=== PATIENT | female | born 1945 | race American Indian/Alaskan Native ===

== ENCOUNTER 2021-03-28 09:40 | Inpatient (IN) | payer MEDICARE ==
[2021-03-28] MEDS ORDERED: ALBUTEROL 2.5 MG/3 ML NEBU IH ONE (09:54)
[2021-03-28] MEDS ORDERED: IPRATROPIUM 0.02% NEBU 2.5 ML IH ONE (09:54)
[2021-03-28 10:26] LABS: Hematocrit 34.5 % (30.3-42.9); Hemoglobin 11.2 gm/dl (10.1-14.3); Mean Corpuscular HGB Conc 33 % (30-34); Mean Corpuscular Volume 82 fl (79-97); Platelet Count 189 K/mm3 (140-440); Red Cell Distribution Width 14.4 % (13.2-15.2)
[2021-03-28 10:36] LABS: INR 0.86 (0.87-1.13)
[2021-03-28 10:37] LABS: Partial Thromboplastin Time 30.8 Sec. (24.2-36.6)
--- NOTE | 2021-03-28 10:50 | XRay Report ---
CHEST 1 VIEW INDICATION / CLINICAL INFORMATION: Dyspnea. COMPARISON: 04/30/2015. FINDINGS: SUPPORT DEVICES: None. HEART / MEDIASTINUM: No significant abnormality. LUNGS / PLEURA: Prominence of the pulmonary vasculature may represent some degree of pulmonary vascul ar congestion. No overt edema. No pneumothorax. ADDITIONAL FINDINGS: No significant additional findings. IMPRESSION: 1. Prominence of the pulmonary vasculature may represent pulmonary vascular congestion. No overt shannan a. No focal consolidation. Signer Name: Jono Dickinson MD Signed: 03/28/2021 10:45 AM Workstation Name: [id number]
[2021-03-28 11:08] LABS: ABG Base Excess 0.7 mmol/L (-2.0-3.0); ABG HCO3 26.1 mmol/L (20.0-26.0); ABG Methemoglobin 0.4 % (0.0-1.5); ABG Oxygen Saturation 96.8 % (95.0-99.0); ABG PH 7.382 pH Units (7.350-7.450); ABG PO2 86.2 mm Hg (80.0-90.0)
[2021-03-28 11:19] LABS: Alanine Aminotransferase 8 units/L (7-56); Albumin 3.9 g/dL (3.9-5); BUN/Creatinine Ratio 9; Blood Urea Nitrogen 10 mg/dL (7-17); Calcium 9.4 mg/dL (8.4-10.2); Hemolysis Index 3
[2021-03-28 11:24] LABS: Bilirubin,Urine NEG (Negative); Blood,Urine NEG (Negative); Color,Urine Straw (Yellow); Protein,Urine <15 mg/dL mg/dL (Negative); Urobilinogen,Urine < 2.0 mg/dL (<2.0)
[2021-03-28 13:27] LABS: Giant Platelets Few; Platelet Estimate Consistent w Auto; RBC Morphology Normal; Total Cells Counted 100
--- NOTE | 2021-03-28 14:14 | Emergency Department Report ---
ED General Adult HPI - General Chief complaint: Dyspnea/Respdistress Stated complaint: CRISTIAN/CHF/COPD Time Seen by Provider: 03/28/21 09:54 Source: patient, EMS Mode of arrival: Stretcher Limitations: No Limitations - History of Present Illness Initial comments: Patient presents to the emergency department via EMS on a CPAP for respiratory distress. Patient has a history of COPD and CHF. Per EMS the patient's O2 sats were in the low 80s upon arrival. Patient is using all sensory muscles and tripoding on the CPAP on arrival. Patient is in significant discomfort respiratory ponce. Patient is only able to speak in 2-3 word sentences. Patient denies chest pain but does endorse having some chest tightness. She denies abdominal pain or headache. Patient received 2 mg of magnesium, 125 mg of Solu- Medrol, and 10 mg of albuterol prior to arrival by EMS -: Sudden Severity scale (0 -10): 0 Consistency: constant Improves with: none Worsens with: none Associated Symptoms: denies other symptoms - Related Data Home Medications Medication Instructions Recorded Confirmed Last Taken Furosemide [Lasix TAB] 40 mg PO QDAY 05/31/15 06/28/15 05/30/15 amLODIPine 5 mg PO DAILY 05/31/15 06/28/15 05/30/15 cloNIDine [Catapres] 0.1 mg PO BID 05/31/15 06/28/15 05/30/15 lisinopriL [Zestril TAB] 40 mg PO QDAY 05/31/15 06/28/15 05/30/15 Fluticasone [Flonase] 1 spray NS QDAY 06/28/15 06/28/15 Unknown Hydralazine HCl [Apresoline TAB] 25 mg PO DAILY 06/28/15 06/28/15 Unknown Montelukast [Singulair] 10 mg PO QPM 06/28/15 06/28/15 Unknown traMADoL [Ultram 50 MG tab] 50 mg PO Q8HR PRN 06/28/15 06/28/15 Unknown Previous Rx's Medication Instructions Recorded Last Taken Type Albuterol Mdi (or & Nicu Only) 2 puff IH QID PRN #30 inha 06/02/15 Unknown Rx [ProAir HFA Inhaler] Budesoni/Formotero 160-4.5(Nf) 2 puff IH BID #30 inha 06/02/15 Unknown Rx [Symbicort 160-4.5 (Nf)] Metformin HCl [Glucophage] 1,000 mg PO BID #60 tablet 06/02/15 Unknown Rx carvediloL [Coreg] 6.25 mg PO BID #60 tablet 06/02/15 Unknown Rx levoFLOXacin [Levaquin TAB] 500 mg PO QDAY #7 tablet 06/02/15 Unknown Rx predniSONE 10 mg PO QDAY #60 tablet 06/02/15 Unknown Rx oxyCODONE /ACETAMINOPHEN [Percocet 1 tab PO Q6HR PRN #30 tablet 07/01/15 Unknown Rx 5/325] Allergies Allergy/AdvReac Type Severity Reaction Status Date / Time NSAIDS (Non-Steroidal Allergy Unknown Verified 06/28/15 13:21 Anti-Inflamma ED Review of Systems ROS: Stated complaint: CRISTIAN/CHF/COPD Other details as noted in HPI Comment: Unobtainable due to pts medical conditions ED Past Medical Hx - Past Medical History Hx Hypertension: Yes Hx Heart Attack/AMI: No Hx Congestive Heart Failure: Yes Hx Diabetes: Yes Hx Deep Vein Thrombosis: No Hx Pulmonary Embolism: No Hx Liver Disease: No Hx Arthritis: Yes Hx Asthma: Yes Hx COPD: Yes Hx Tuberculosis: No Hx HIV: No Additional medical history: Chronic sinusitis - Surgical History Hx Coronary Stent: No Hx Open Heart Surgery: No Hx Pacemaker: No Hx Internal Defibrillator: No Hx Cholecystectomy: No Hx Appendectomy: No Hx Breast Surgery: No Additional Surgical History: Sinus surgeries, c-sections, left wrist surgery - Social History Smoking Status: Unknown if ever smoked - Medications Home Medications: Home Medications Medication Instructions Recorded Confirmed Last Taken Type Furosemide [Lasix TAB] 40 mg PO QDAY 05/31/15 06/28/15 05/30/15 History amLODIPine 5 mg PO DAILY 05/31/15 06/28/15 05/30/15 History cloNIDine [Catapres] 0.1 mg PO BID 05/31/15 06/28/15 05/30/15 History lisinopriL [Zestril TAB] 40 mg PO QDAY 05/31/15 06/28/15 05/30/15 History Albuterol Mdi (or & Nicu Only) 2 puff IH QID PRN #30 inha 06/02/15 06/28/15 Unknown Rx [ProAir HFA Inhaler] Budesoni/Formotero 160-4.5(Nf) 2 puff IH BID #30 inha 06/02/15 06/28/15 Unknown Rx [Symbicort 160-4.5 (Nf)] Metformin HCl [Glucophage] 1,000 mg PO BID #60 tablet 06/02/15 06/28/15 Unknown Rx carvediloL [Coreg] 6.25 mg PO BID #60 tablet 06/02/15 06/28/15 Unknown Rx levoFLOXacin [Levaquin TAB] 500 mg PO QDAY #7 tablet 06/02/15 06/28/15 Unknown Rx predniSONE 10 mg PO QDAY #60 tablet 06/02/15 06/28/15 Unknown Rx Fluticasone [Flonase] 1 spray NS QDAY 06/28/15 06/28/15 Unknown History Hydralazine HCl [Apresoline TAB] 25 mg PO DAILY 06/28/15 06/28/15 Unknown History Montelukast [Singulair] 10 mg PO QPM 06/28/15 06/28/15 Unknown History traMADoL [Ultram 50 MG tab] 50 mg PO Q8HR PRN 06/28/15 06/28/15 Unknown History oxyCODONE /ACETAMINOPHEN [Percocet 1 tab PO Q6HR PRN #30 tablet 07/01/15 Unknown Rx 5/325] ED Physical Exam - General Limitations: No Limitations General appearance: alert, in no apparent distress, in distress (Patient seen severe respiratory distress on CPAP tripoding on exam using all accessory muscle s.) - Head Head exam: Present: atraumatic, normocephalic - Eye Eye exam: Present: normal appearance - ENT ENT exam: Present: mucous membranes dry - Neck Neck exam: Present: normal inspection - Respiratory Respiratory exam: Present: respiratory distress, other (No movement of air on exam) - Cardiovascular Cardiovascular Exam: Present: normal rhythm, tachycardia. Absent: systolic murmur, diastolic murmur, rubs, gallop - GI/Abdominal GI/Abdominal exam: Present: soft, normal bowel sounds. Absent: distended, tenderness - Extremities Exam Extremities exam: Present: normal inspection - Back Exam Back exam: Present: normal inspection - Neurological Exam Neurological exam: Present: alert, oriented X3 - Psychiatric Psychiatric exam: Present: normal affect, normal mood - Skin Skin exam: Present: warm, dry, intact, normal color. Absent: rash ED Course Vital Signs 03/28/21 03/28/21 03/28/21 09:47 10:00 10:04 Temperature 97.5 F L Pulse Rate 93 H 90 88 Pulse Rate [ Bilateral] Respiratory 18 15 4 L Rate Respiratory Rate [Bilateral ] Blood Pressure 166/101 [Right] O2 Sat by Pulse 100 100 100 Oximetry 03/28/21 11:44 Temperature Pulse Rate Pulse Rate [ 78 Bilateral] Respiratory Rate Respiratory 16 Rate [Bilateral ] Blood Pressure [Right] O2 Sat by Pulse Oximetry ED Medical Decision Making - Lab Data Result diagrams: 03/28/21 10:00 03/28/21 10:00 Lab Results 03/28/21 03/28/21 03/28/21 Range/Units 10:00 10:00 10:00 WBC 4.6 (4.5-11.0) K/mm3 RBC 4.20 (3.65-5.03) M/mm3 Hgb 11.2 (10.1-14.3) gm/dl Hct 34.5 (30.3-42.9) % MCV 82 (79-97) fl MCH 27 L (28-32) pg MCHC 33 (30-34) % RDW 14.4 (13.2-15.2) % Plt Count 189 (140-440) K/mm3 Eos % (Auto) Systems Navigator Add Manual Diff Complete Total Counted 100 Seg Neutrophils % Systems Navigator Seg Neuts % (Manual) 51.0 (40.0-70.0) % Lymphocytes % (Manual) 25.0 (13.4-35.0) % Monocytes % (Manual) 9.0 H (0.0-7.3) % Eosinophils % (Manual) 15.0 H (0.0-4.3) % Nucleated RBC % Not Reportable Seg Neutrophils # Man 2.3 (1.8-7.7) K/mm3 Band Neutrophils # 0.0 K/mm3 Lymphocytes # (Manual) 1.2 (1.2-5.4) K/mm3 Abs React Lymphs (Man) 0.0 K/mm3 Monocytes # (Manual) 0.4 (0.0-0.8) K/mm3 Eosinophils # (Manual) 0.7 H (0.0-0.4) K/mm3 Basophils # (Manual) 0.0 (0.0-0.1) K/mm3 Metamyelocytes # 0.0 K/mm3 Myelocytes # 0.0 K/mm3 Promyelocytes # 0.0 K/mm3 Blast Cells # 0.0 K/mm3 WBC Morphology Not Reportable Hypersegmented Neuts Not Reportable Hyposegmented Neuts Not Reportable Hypogranular Neuts Not Reportable Smudge Cells Not Reportable Toxic Granulation Not Reportable Toxic Vacuolation Not Reportable Dohle Bodies Not Reportable Pelger-Huet Anomaly Not Reportable Ananda Rods Not Reportable Platelet Estimate Consistent w auto Clumped Platelets Not Reportable Plt Clumps, EDTA Not Reportable Large Platelets Not Reportable Giant Platelets Few Platelet Satelliting Not Reportable Plt Morphology Comment Not Reportable RBC Morphology Normal Dimorphic RBCs Not Reportable Polychromasia Not Reportable Hypochromasia Not Reportable Poikilocytosis Not Reportable Anisocytosis Not Reportable Microcytosis Not Reportable Macrocytosis Not Reportable Spherocytes Not Reportable Pappenheimer Bodies Not Reportable Sickle Cells Not Reportable Target Cells Not Reportable Tear Drop Cells Not Reportable Ovalocytes Not Reportable Helmet Cells Not Reportable [place] Bodies Not Reportable Glidden Rings Not Reportable Yusuf Cells Not Reportable Bite Cells Not Reportable Crenated Cell Not Reportable Elliptocytes Not Reportable Acanthocytes (Spur) Not Reportable Rouleaux Not Reportable Hemoglobin C Crystals Not Reportable Schistocytes Not Reportable Malaria parasites Not Reportable Nathan Bodies Not Reportable Hem Pathologist Commnt No PT 12.2 (12.2-14.9) Sec. INR 0.86 L (0.87-1.13) APTT 30.8 (24.2-36.6) Sec. ABG pH (7.350-7.450) pH Units ABG pCO2 mm Hg ABG pO2 (80.0-90.0) mm Hg ABG HCO3 (20.0-26.0) mmol/L ABG O2 Saturation (95.0-99.0) % ABG O2 Content (0.0-44) ABG Base Excess (-2.0-3.0) mmol/L ABG Hemoglobin (12.0-16.0) gm/dl ABG Carboxyhemoglobin (0.0-5.0) % ABG Methemoglobin (0.0-1.5) % Oxyhemoglobin (95.0-99.0) % FiO2 % Sodium 139 (137-145) mmol/L Potassium 4.0 (3.6-5.0) mmol/L Chloride 102.6 (98-107) mmol/L Carbon Dioxide 23 (22-30) mmol/L Anion Gap 17 mmol/L BUN 10 (7-17) mg/dL Creatinine 1.1 (0.6-1.2) mg/dL Estimated GFR 59 ml/min BUN/Creatinine Ratio 9 % Glucose 104 H (65-100) mg/dL Lactic Acid (0.7-2.0) mmol/L Calcium 9.4 (8.4-10.2) mg/dL Magnesium 3.10 H (1.7-2.3) mg/dL Total Bilirubin 0.50 (0.1-1.2) mg/dL AST 15 (5-40) units/L ALT 8 (7-56) units/L Alkaline Phosphatase 99 (35-129) units/L Troponin T < 0.010 (0.00-0.029) ng/mL NT-Pro-B Natriuret Pep (0-900) pg/mL Total Protein 6.5 (6.3-8.2) g/dL Albumin 3.9 (3.9-5) g/dL Albumin/Globulin Ratio 1.5 % Urine Color (Yellow) Urine Turbidity (Clear) Urine pH (5.0-7.0) Ur Specific [place] (1.003-1.030) Urine Protein (Negative) mg/dL Urine Glucose (UA) (Negative) mg/dL Urine Ketones (Negative) mg/dL Urine Blood (Negative) Urine Nitrite (Negative) Urine Bilirubin (Negative) Urine Urobilinogen (<2.0) mg/dL Ur Leukocyte Esterase (Negative) Urine WBC (Auto) (0.0-6.0) /HPF Urine RBC (Auto) (0.0-6.0) /HPF U Epithel Cells (Auto) (0-13.0) /HPF 03/28/21 03/28/21 03/28/21 Range/Units 10:00 10:00 10:35 WBC (4.5-11.0) K/mm3 RBC (3.65-5.03) M/mm3 Hgb (10.1-14.3) gm/dl Hct (30.3-42.9) % MCV (79-97) fl MCH (28-32) pg MCHC (30-34) % RDW (13.2-15.2) % Plt Count (140-440) K/mm3 Eos % (Auto) Add Manual Diff Total Counted Seg Neutrophils % Seg Neuts % (Manual) (40.0-70.0) % Lymphocytes % (Manual) (13.4-35.0) % Monocytes % (Manual) (0.0-7.3) % Eosinophils % (Manual) (0.0-4.3) % Nucleated RBC % Seg Neutrophils # Man (1.8-7.7) K/mm3 Band Neutrophils # K/mm3 Lymphocytes # (Manual) (1.2-5.4) K/mm3 Abs React Lymphs (Man) K/mm3 Monocytes # (Manual) (0.0-0.8) K/mm3 Eosinophils # (Manual) (0.0-0.4) K/mm3 Basophils # (Manual) (0.0-0.1) K/mm3 Metamyelocytes # K/mm3 Myelocytes # K/mm3 Promyelocytes # K/mm3 Blast Cells # K/mm3 WBC Morphology Hypersegmented Neuts Hyposegmented Neuts Hypogranular Neuts Smudge Cells Toxic Granulation Toxic Vacuolation Dohle Bodies Pelger-Huet Anomaly Ananda Rods Platelet Estimate Clumped Platelets Plt Clumps, EDTA Large Platelets Giant Platelets Platelet Satelliting Plt Morphology Comment RBC Morphology Dimorphic RBCs Polychromasia Hypochromasia Poikilocytosis Anisocytosis Microcytosis Macrocytosis Spherocytes Pappenheimer Bodies Sickle Cells Target Cells Tear Drop Cells Ovalocytes Helmet Cells [place] Bodies Glidden Rings [place] Cells Bite Cells Crenated Cell Elliptocytes Acanthocytes (Spur) Rouleaux Hemoglobin C Crystals Schistocytes Malaria parasites Nathan Bodies Hem Pathologist Commnt PT (12.2-14.9) Sec. INR (0.87-1.13) APTT (24.2-36.6) Sec. ABG pH (7.350-7.450) pH Units ABG pCO2 mm Hg ABG pO2 (80.0-90.0) mm Hg ABG HCO3 (20.0-26.0) mmol/L ABG O2 Saturation (95.0-99.0) % ABG O2 Content (0.0-44) ABG Base Excess (-2.0-3.0) mmol/L ABG Hemoglobin (12.0-16.0) gm/dl ABG Carboxyhemoglobin (0.0-5.0) % ABG Methemoglobin (0.0-1.5) % Oxyhemoglobin (95.0-99.0) % FiO2 % Sodium (137-145) mmol/L Potassium (3.6-5.0) mmol/L Chloride (98-107) mmol/L Carbon Dioxide (22-30) mmol/L Anion Gap mmol/L BUN (7-17) mg/dL Creatinine (0.6-1.2) mg/dL Estimated GFR ml/min BUN/Creatinine Ratio % Glucose (65-100) mg/dL Lactic Acid 0.90 (0.7-2.0) mmol/L Calcium (8.4-10.2) mg/dL Magnesium (1.7-2.3) mg/dL Total Bilirubin (0.1-1.2) mg/dL AST (5-40) units/L ALT (7-56) units/L Alkaline Phosphatase (35-129) units/L Troponin T (0.00-0.029) ng/mL NT-Pro-B Natriuret Pep 309.2 (0-900) pg/mL Total Protein (6.3-8.2) g/dL Albumin (3.9-5) g/dL Albumin/Globulin Ratio % Urine Color Straw (Yellow) Urine Turbidity Clear (Clear) Urine pH 6.0 (5.0-7.0) Ur Specific [place] 1.006 (1.003-1.030) Urine Protein <15 mg/dl (Negative) mg/dL Urine Glucose (UA) Neg (Negative) mg/dL Urine Ketones Neg (Negative) mg/dL Urine Blood Neg (Negative) Urine Nitrite Neg (Negative) Urine Bilirubin Neg (Negative) Urine Urobilinogen < 2.0 (<2.0) mg/dL Ur Leukocyte Esterase Neg (Negative) Urine WBC (Auto) 1.0 (0.0-6.0) /HPF Urine RBC (Auto) 2.0 (0.0-6.0) /HPF U Epithel Cells (Auto) < 1.0 (0-13.0) /HPF 03/28/21 Range/Units 11:00 WBC (4.5-11.0) K/mm3 RBC (3.65-5.03) M/mm3 Hgb (10.1-14.3) gm/dl Hct (30.3-42.9) % MCV (79-97) fl MCH (28-32) pg MCHC (30-34) % RDW (13.2-15.2) % Plt Count (140-440) K/mm3 Eos % (Auto) Add Manual Diff Total Counted Seg Neutrophils % Seg Neuts % (Manual) (40.0-70.0) % Lymphocytes % (Manual) (13.4-35.0) % Monocytes % (Manual) (0.0-7.3) % Eosinophils % (Manual) (0.0-4.3) % Nucleated RBC % Seg Neutrophils # Man (1.8-7.7) K/mm3 Band Neutrophils # K/mm3 Lymphocytes # (Manual) (1.2-5.4) K/mm3 Abs React Lymphs (Man) K/mm3 Monocytes # (Manual) (0.0-0.8) K/mm3 Eosinophils # (Manual) (0.0-0.4) K/mm3 Basophils # (Manual) (0.0-0.1) K/mm3 Metamyelocytes # K/mm3 Myelocytes # K/mm3 Promyelocytes # K/mm3 Blast Cells # K/mm3 WBC Morphology Hypersegmented Neuts Hyposegmented Neuts Hypogranular Neuts Smudge Cells Toxic Granulation Toxic Vacuolation Dohle Bodies Pelger-Huet Anomaly Ananda Rods Platelet Estimate Clumped Platelets Plt Clumps, EDTA Large Platelets Giant Platelets Platelet Satelliting Plt Morphology Comment RBC Morphology Dimorphic RBCs Polychromasia Hypochromasia Poikilocytosis Anisocytosis Microcytosis Macrocytosis Spherocytes Pappenheimer Bodies Sickle Cells Target Cells Tear Drop Cells Ovalocytes Helmet Cells [place] Bodies Glidden Rings Yusuf Cells Bite Cells Crenated Cell Elliptocytes Acanthocytes (Spur) Rouleaux Hemoglobin C Crystals Schistocytes Malaria parasites Nathan Bodies Hem Pathologist Commnt PT (12.2-14.9) Sec. INR (0.87-1.13) APTT (24.2-36.6) Sec. ABG pH 7.382 (7.350-7.450) pH Units ABG pCO2 45.0 mm Hg ABG pO2 86.2 (80.0-90.0) mm Hg ABG HCO3 26.1 H (20.0-26.0) mmol/L ABG O2 Saturation 96.8 (95.0-99.0) % ABG O2 Content 15.3 (0.0-44) ABG Base Excess 0.7 (-2.0-3.0) mmol/L ABG Hemoglobin 11.4 L (12.0-16.0) gm/dl ABG Carboxyhemoglobin 1.4 (0.0-5.0) % ABG Methemoglobin 0.4 (0.0-1.5) % Oxyhemoglobin 95.0 (95.0-99.0) % FiO2 35 % Sodium (137-145) mmol/L Potassium (3.6-5.0) mmol/L Chloride (98-107) mmol/L Carbon Dioxide (22-30) mmol/L Anion Gap mmol/L BUN (7-17) mg/dL Creatinine (0.6-1.2) mg/dL Estimated GFR ml/min BUN/Creatinine Ratio % Glucose (65-100) mg/dL Lactic Acid (0.7-2.0) mmol/L Calcium (8.4-10.2) mg/dL Magnesium (1.7-2.3) mg/dL Total Bilirubin (0.1-1.2) mg/dL AST (5-40) units/L ALT (7-56) units/L Alkaline Phosphatase (35-129) units/L Troponin T (0.00-0.029) ng/mL NT-Pro-B Natriuret Pep (0-900) pg/mL Total Protein (6.3-8.2) g/dL Albumin (3.9-5) g/dL Albumin/Globulin Ratio % Urine Color (Yellow) Urine Turbidity (Clear) Urine pH (5.0-7.0) Ur Specific [place] (1.003-1.030) Urine Protein (Negative) mg/dL Urine Glucose (UA) (Negative) mg/dL Urine Ketones (Negative) mg/dL Urine Blood (Negative) Urine Nitrite (Negative) Urine Bilirubin (Negative) Urine Urobilinogen (<2.0) mg/dL Ur Leukocyte Esterase (Negative) Urine WBC (Auto) (0.0-6.0) /HPF Urine RBC (Auto) (0.0-6.0) /HPF U Epithel Cells (Auto) (0-13.0) /HPF - EKG Data -: EKG Interpreted by Me EKG shows normal: sinus rhythm Rate: normal - Radiology Data Radiology results: report reviewed - Medical Decision Making Patient placed on BiPAP Patient given continuous breathing treatment with albuterol and Atrovent Critical Care Time: Yes Critical care time in (mins) excluding proc time.: 35 Critical care attestation.: If time is entered above; I have spent that time in minutes in the direct care of this critically ill patient, excluding procedure time. ED Disposition Clinical Impression: Respiratory failure Disposition: [id number] OP ADMIT IP TO THIS HOSP Is pt being admited?: Yes Does the pt Need Aspirin: Yes Condition: Fair Referrals: PRIMARY CARE, [Primary Care Provider] - 3-5 Days
[2021-03-28] MEDS ORDERED: ALBUTEROL 2.5 MG/3 ML NEBU IH PRN (14:18)
[2021-03-28] MEDS ORDERED: ONDANSETRON 4 MG/2 ML INJ IV PRN (14:18)
[2021-03-28] MEDS ORDERED: ACETAMINOPHEN 325 MG TAB PO PRN (14:18)
[2021-03-28] MEDS ORDERED: traMADol 50 MG TAB PO PRN ×2 (14:20→14:29)
[2021-03-28] MEDS ORDERED: ASPIRIN 81 MG TAB CHEW PO ONE (14:24)
--- NOTE | 2021-03-28 14:48 | History and Physical Report ---
History of Present Illness Date of admission: 03/28/21 14:18 Chief complaint: I cant breathe History of present illness: 75 YO Female with Obesity Hypoventilation Syndrome,CT, HTN, OA, COPD, Asthma, DM presents to ED for evaluation. Patient reports "I cannot breathe". Patient states that she has experienced shortness of breath over the past 2 days with progressively worsening symptoms over the same timeframe. EMS was notified and on arrival the patient was found to be in respiratory distress and placed on submental oxygen and subsequently transported to [facility] for further care and eval uation of the aforementioned symptoms. The patient was seen and evaluated in the emergency department. All lab and imaging studies reviewed. Patient underwent chest x-ray which revealed bilateral pulmonary vascular congestion. The patient was found to have a pulse oximetry of 88% on room air with a decreased to 84% with exertion. The patient is unable to speak in complete sentences. The patient is using accessory muscles and tripoding upon arrival. The patient was treated with IV steroid therapy, 2 mg of magnesium, as well as nebulizer therapy without significant improvement in symptoms. The patient was subsequently placed on noninvasive positive pressure ventilation and treated with concomitant diuretic therapy. Patient found to have acute hypoxemic respiratory failure suspected secondary to CHF decompensation. The patient was admitted to telemetry and initiated on CHF protocol. Patient uses head nodding to acknowledge symptoms. Using the aforementioned gestures the patient acknowledges orthopnea, paroxysmal nocturnal dyspnea, decreased exercise tolerance but denies fever, chills, chest pain, palpitation, productive cough, skin rash, recent ill contacts, or known exposure to COVID-19. Prior admission on 06/28/2015 reviewed. All medication listed at time of admission has been reconciled. Advanced care planning conducted in ED. Past History Past Medical History: acute CT, arthritis, diabetes, hypertension Past Surgical History: , Other (Sinus surgery, left wrist surgery) Social history: single. denies: smoking, alcohol abuse, prescription drug abuse Family history: diabetes, hypertension Medications and Allergies Allergies Allergy/AdvReac Type Severity Reaction Status Date / Time NSAIDS (Non-Steroidal Allergy Unknown Verified 06/28/15 13:21 Anti-Inflamma Home Medications Medication Instructions Recorded Confirmed Last Taken Type Azelastine 0.1% (Nf) [Astelin (Nf)] 137 mcg NS QDAY 03/28/21 03/28/21 Unknown History Cetirizine HCl [All Day Allergy 10 mg PO QDAY 03/28/21 03/28/21 Unknown History Relief] Fluticasone/Vilanterol [Breo 1 each IH QDAY 03/28/21 03/28/21 Unknown History Ellipta 100-25 Mcg INH] Furosemide [Lasix TAB] 40 mg PO BID 03/28/21 03/28/21 Unknown History Labetalol HCl [Labetalol 300mg TAB] 300 mg PO BID 03/28/21 03/28/21 Unknown History hydrALAZINE [Apresoline TAB] 100 mg PO BID 03/28/21 03/28/21 Unknown History lisinopriL [Zestril TAB] 40 mg PO QDAY 03/28/21 03/28/21 Unknown History Active Meds: Active Medications Acetaminophen (Acetaminophen 325 Mg Tab) 650 mg PO Q4H PRN PRN Reason: Pain MILD(1-3)/Fever >100.5/PIERRE Albuterol (Albuterol 2.5 Mg/3 Ml Nebu) 2.5 mg IH Q4HRT PRN PRN Reason: Shortness Of Breath Amlodipine Besylate (Amlodipine 5 Mg Tab) 5 mg PO DAILY [facility] Arformoterol Tartrate (Arformoterol 15 Mcg/2 Ml Nebu) 15 mcg IH Q12HRT [facility] Budesonide (Budesonide 0.5 Mg/2 Ml Nebu) 1 mg IH Q12HRT [facility] Carvedilol (Carvedilol 6.25 Mg Tab) 6.25 mg PO BID [facility] Clonidine HCl (Clonidine 0.1 Mg Tab) 0.1 mg PO BID [facility] Furosemide (Furosemide 20 Mg/2 Ml Inj) 20 mg IV BID@0600,1800 [facility] Hydralazine HCl (Hydralazine 25 Mg Tab) 25 mg PO DAILY [facility] Lisinopril (Lisinopril 40 Mg Tab) 40 mg PO QDAY [facility] Montelukast Sodium (Montelukast 10 Mg Tab) 10 mg PO QPM [facility] Morphine Sulfate (Morphine 4 Mg/1 Ml Inj) 1 mg IV Q8H PRN PRN Reason: Pain , Severe (7-10) Ondansetron HCl (Ondansetron 4 Mg/2 Ml Inj) 4 mg IV Q8H PRN PRN Reason: Nausea And Vomiting Oxycodone/Acetaminophen (Oxycodone /Acetaminophen 5-325mg Tab) 1 tab PO Q6H PRN PRN Reason: Pain, Moderate (4-6) Sodium Chloride (Sodium Chloride 0.9% 10 Ml Flush Syringe) 10 ml IV BID [facility] Sodium Chloride (Sodium Chloride 0.9% 10 Ml Flush Syringe) 10 ml IV PRN PRN PRN Reason: LINE FLUSH Tramadol HCl (Tramadol 50 Mg Tab) 50 mg PO Q6H PRN PRN Reason: Pain, Moderate (4-6) Review of Systems Constitutional: no weight loss, no weight gain, no fever, no chills Ears, nose, mouth and throat: no ear pain, no tinnitis, no decreased hearing, no nasal congestion, no nasal discharge, no sinus pressure Breasts: no change in shape, no swelling, no mass Cardiovascular: orthopnea, dyspnea on exertion, paroxysmal nocturnal dyspnea, decreased exercise tolerance, no chest pain, no palpitations, no syncope Respiratory: shortness of breath, no cough, no pleurisy, no pain, no pain on inspiration Exam - Constitutional Vitals: Temp Pulse Resp BP Pulse Ox 97.5 F L 78 16 166/101 100 03/28/21 10:00 03/28/21 11:44 03/28/21 11:44 03/28/21 10:00 03/28/21 10:04 General appearance: Present: mild distress - EENT Eyes: Present: PERRL ENT: hearing intact, clear oral mucosa - Neck Neck: Present: supple, normal ROM - Respiratory Respiratory effort: labored, pursed lips, accessory muscle use, stridor Respiratory: bilateral: diminished, rales - Cardiovascular Heart Sounds: Present: S1 & S2. Absent: rub, click - Extremities Extremities: pulses symmetrical, No edema Peripheral Pulses: within normal limits - Abdominal General gastrointestinal: Present: soft, non-tender, non-distended, normal bowel sounds Female genitourinary: Present: normal - Integumentary Integumentary: Present: clear, warm, dry - Musculoskeletal Musculoskeletal: generalized weakness - Psychiatric Psychiatric: appropriate mood/affect, intact judgment & insight - Neurologic Neurologic: CNII-XII intact, moves all extremities HEART Score - HEART Score Troponin: Troponin T < 0.010 ng/mL (0.00-0.029) 03/28/21 10:00 Results - Labs CBC & Chem 7: 03/28/21 10:00 03/28/21 10:00 Labs: Abnormal lab results 03/28/21 03/28/21 03/28/21 Range/Units 10:00 10:00 10:00 MCH 27 L (28-32) pg Monocytes % (Manual) 9.0 H (0.0-7.3) % Eosinophils % (Manual) 15.0 H (0.0-4.3) % Eosinophils # (Manual) 0.7 H (0.0-0.4) K/mm3 INR 0.86 L (0.87-1.13) ABG HCO3 (20.0-26.0) mmol/L ABG Hemoglobin (12.0-16.0) gm/dl Glucose 104 H (65-100) mg/dL Magnesium 3.10 H (1.7-2.3) mg/dL 03/28/21 Range/Units 11:00 MCH (28-32) pg Monocytes % (Manual) (0.0-7.3) % Eosinophils % (Manual) (0.0-4.3) % Eosinophils # (Manual) (0.0-0.4) K/mm3 INR (0.87-1.13) ABG HCO3 26.1 H (20.0-26.0) mmol/L ABG Hemoglobin 11.4 L (12.0-16.0) gm/dl Glucose (65-100) mg/dL Magnesium (1.7-2.3) mg/dL Assessment and Plan - Patient Problems (1) Acute hypoxemic respiratory failure Current Visit: Yes Status: Acute Plan to address problem: Supplemental oxygen, pulse oximetry, nebulizer therapy, noninvasive positive pressure ventilation, wean as tolerated. Arterial blood gas, chest x-ray. (2) Heart failure, diastolic, with acute decompensation Current Visit: Yes Status: Acute Plan to address problem: Strict I's/O, monitor urine output every shift, afterload reduction, blood pressure control, echocardiogram ordered and is pending at time of admission, diuresis therapy, BNP, thyroid panel, magnesium level. (3) Obesity hypoventilation syndrome Current Visit: Yes Status: Acute Plan to address problem: Balanced diet, increase physical activity discharge, outpatient pulmonary follow-up for sleep study. (4) Hypertension Current Visit: Yes Status: Acute Qualifiers: Hypertension type: primary hypertension Qualified Code(s): I10 - Essential (primary) hypertension Plan to address problem: Monitor blood pressure every shift, continue medical management, continue prehospital antihypertensive therapy. (5) Diabetes Current Visit: Yes Status: Acute Plan to address problem: Consistent carbohydrate diet, Accu-Chek, hypoglycemia protocol, insulin protocol. (6) DVT prophylaxis Current Visit: Yes Status: Acute Plan to address problem: SCD to bilateral lower extremities while in bed, patient is ambulatory (7) Advance care planning Current Visit: Yes Status: Acute Plan to address problem: Disease education conducted, care plan discussed, diagnoses discussed, prognosis discussed, patient is full code. Patient knowledges understanding and agreement with care plan, +30 minutes.
[2021-03-28] MEDS: oxyCODONE /ACETAMINOPHEN 5-325MG TAB PO PRN (15:52)
[2021-03-28 16:48] LABS: Free T4 (Free Thyroxine) 1.02 ng/dL (0.76-1.46)
[2021-03-28] MEDS: FUROSEMIDE 20 MG/2 ML INJ IV SCH (18:00)
[2021-03-28] MEDS: MONTELUKAST 10 MG TAB PO SCH (20:02)
[2021-03-28] MEDS: BUDESONIDE 0.5 MG/2 ML NEBU IH SCH (20:42)
[2021-03-28] MEDS: ARFORMOTEROL 15 MCG/2 ML NEBU IH SCH (20:42)
[2021-03-28] MEDS: MORPHINE 4 MG/1 ML INJ IV PRN (21:08)
[2021-03-28] MEDS: hydrALAZINE 100 MG TAB PO SCH (21:32)
[2021-03-28] MEDS: cloNIDine 0.1 MG TAB PO SCH (21:32)
[2021-03-28] MEDS ORDERED: NON-FORMULARY EACH (Labetalol Hcl [Labetalol 300mg Tab] 300 MG Tablet) PO SCH (22:00)
[2021-03-28] MEDS ORDERED: carvediloL 6.25 MG TAB PO SCH (22:00)
[2021-03-28] MEDS ORDERED: FUROSEMIDE 40 MG TAB PO SCH (22:00)
[2021-03-28] MEDS ORDERED: NON-FORMULARY EACH (Budesoni/Formotero 160-4.5(Nf) 10.2 GM Inha) IH SCH (22:00)
[2021-03-29] MEDS: FUROSEMIDE 20 MG/2 ML INJ IV SCH (06:16)
[2021-03-29 06:46] LABS: Calcium 8.4 mg/dL (8.4-10.2)
[2021-03-29] MEDS: ARFORMOTEROL 15 MCG/2 ML NEBU IH SCH ×2 (08:47→19:54)
[2021-03-29] MEDS: BUDESONIDE 0.5 MG/2 ML NEBU IH SCH ×2 (08:48→19:54)
[2021-03-29] MEDS ORDERED: NON-FORMULARY EACH (Hydralazine Hcl [Apresoline Tab] 50 MG Tablet) PO SCH (10:00)
[2021-03-29] MEDS ORDERED: [UNRECOGNIZED DRUG - REMARK] PO SCH (10:00)
[2021-03-29] MEDS ORDERED: amLODIPine 5 MG TAB PO SCH (10:00)
[2021-03-29] MEDS ORDERED: NON-FORMULARY EACH (Fluticasone/Vilanterol [Breo Ellipta 100-25 Mcg Inh] 1 EACH Blst.W.Dev IH SCH (10:00)
[2021-03-29] MEDS ORDERED: LISINOPRIL 40 MG TAB PO SCH (10:00)
[2021-03-29] MEDS ORDERED: hydrALAZINE 25 MG TAB PO SCH (10:00)
[2021-03-29] MEDS: hydrALAZINE 100 MG TAB PO SCH ×3 (10:39→20:14)
[2021-03-29] MEDS: cloNIDine 0.1 MG TAB PO SCH ×2 (10:39→21:15)
[2021-03-29] MEDS: CETIRIZINE 10 MG TAB PO SCH (10:39)
[2021-03-29] MEDS: LISINOPRIL 40 MG TAB PO SCH (10:39)
[2021-03-29] MEDS: oxyCODONE /ACETAMINOPHEN 5-325MG TAB PO PRN (10:46)
--- NOTE | 2021-03-29 11:22 | Consultation ---
History of Present Illness Consult date: 03/29/21 Requesting physician: YOMI ESTRADA Consult reason: congestive heart failure History of present illness: Patient is a 75 y/o female with a PMHx of HF, COPD, HTN, DM, and chronic sinusitis who presented to ED with complaint of difficulty breathing. She is unknown to our group. She reports that she has been having this problem for 2-3 weeks but in the last 3-4 days it has become progessively worse. Per ED documentation patient O2 sat was 88% and decreased to 83% with exertion. Cardiology is consulted for heart failure. Labs show BNP negative. She reports that she has orthopnea, STRANGE, and chest discomfort when coughing that she rates at 4/10. She denies palpitations or PND. At time of interview patient denies weakness, dizziness, chest pain, N/V, or exposu.re to sick contacts Past History Past Medical History: acute [place], arthritis, COPD, diabetes, hypertension Past Surgical History: , Other (Sinus surgery, left wrist surgery) Social history: single. denies: smoking, alcohol abuse, prescription drug abuse Family history: CAD, diabetes, hypertension Medications and Allergies Allergies Allergy/AdvReac Type Severity Reaction Status Date / Time NSAIDS (Non-Steroidal Allergy Unknown Verified 06/28/15 13:21 Anti-Inflamma Home Medications Medication Instructions Recorded Confirmed Last Taken Type Azelastine 0.1% (Nf) [Astelin (Nf)] 137 mcg NS QDAY 03/28/21 03/28/21 Unknown History Cetirizine HCl [All Day Allergy 10 mg PO QDAY 03/28/21 03/28/21 Unknown History Relief] Fluticasone/Vilanterol [Breo 1 each IH QDAY 03/28/21 03/28/21 Unknown History Ellipta 100-25 Mcg INH] Furosemide [Lasix TAB] 40 mg PO BID 03/28/21 03/28/21 Unknown History Labetalol HCl [Labetalol 300mg TAB] 300 mg PO BID 03/28/21 03/28/21 Unknown History hydrALAZINE [Apresoline TAB] 100 mg PO BID 03/28/21 03/28/21 Unknown History lisinopriL [Zestril TAB] 40 mg PO QDAY 03/28/21 03/28/21 Unknown History Active Meds: Active Medications Acetaminophen (Acetaminophen 325 Mg Tab) 650 mg PO Q4H PRN PRN Reason: Pain MILD(1-3)/Fever >100.5/PIERRE Albuterol (Albuterol 2.5 Mg/3 Ml Nebu) 2.5 mg IH Q4HRT PRN PRN Reason: Shortness Of Breath Amlodipine Besylate (Amlodipine 5 Mg Tab) 5 mg PO DAILY [facility] Last Admin: 03/29/21 10:38 Dose: 5 mg Documented by: Arformoterol Tartrate (Arformoterol 15 Mcg/2 Ml Nebu) 15 mcg IH Q12HRT [facility] Last Admin: 03/29/21 08:47 Dose: 15 mcg Documented by: Budesonide (Budesonide 0.5 Mg/2 Ml Nebu) 1 mg IH Q12HRT [facility] Last Admin: 03/29/21 08:48 Dose: 1 mg Documented by: Cetirizine HCl (Cetirizine 10 Mg Tab) 10 mg PO DAILY [facility] Last Admin: 03/29/21 10:39 Dose: 10 mg Documented by: Clonidine HCl (Clonidine 0.1 Mg Tab) 0.1 mg PO BID [facility] Last Admin: 03/29/21 10:39 Dose: 0.1 mg Documented by: Furosemide (Furosemide 20 Mg/2 Ml Inj) 20 mg IV BID@0600,1800 [facility] Last Admin: 03/29/21 06:16 Dose: 20 mg Documented by: Hydralazine HCl (Hydralazine 100 Mg Tab) 100 mg PO BID [facility] Last Admin: 03/29/21 10:39 Dose: 100 mg Documented by: Labetalol HCl (Labetalol 100 Mg Tab) 300 mg PO BID [facility] Last Admin: 03/29/21 10:38 Dose: 300 mg Documented by: Lisinopril (Lisinopril 40 Mg Tab) 40 mg PO QDAY [facility] Last Admin: 03/29/21 10:39 Dose: 40 mg Documented by: Montelukast Sodium (Montelukast 10 Mg Tab) 10 mg PO QPM [facility] Last Admin: 03/28/21 20:02 Dose: 10 mg Documented by: Morphine Sulfate (Morphine 4 Mg/1 Ml Inj) 1 mg IV Q8H PRN PRN Reason: Pain , Severe (7-10) Last Admin: 03/28/21 21:08 Dose: 1 mg Documented by: Ondansetron HCl (Ondansetron 4 Mg/2 Ml Inj) 4 mg IV Q8H PRN PRN Reason: Nausea And Vomiting Oxycodone/Acetaminophen (Oxycodone /Acetaminophen 5-325mg Tab) 1 tab PO Q6H PRN PRN Reason: Pain, Moderate (4-6) Last Admin: 03/29/21 10:46 Dose: 1 tab Documented by: Sodium Chloride (Sodium Chloride 0.9% 10 Ml Flush Syringe) 10 ml IV BID [facility] Last Admin: 03/29/21 10:45 Dose: 10 ml Documented by: Sodium Chloride (Sodium Chloride 0.9% 10 Ml Flush Syringe) 10 ml IV PRN PRN PRN Reason: LINE FLUSH Tramadol HCl (Tramadol 50 Mg Tab) 50 mg PO Q6H PRN PRN Reason: Pain, Moderate (4-6) Review of Systems All systems: negative Constitutional: no weight loss, no weight gain, no fever, no chills Ears, nose, mouth and throat: nasal congestion, headache, no ear pain, no ear discharge Cardiovascular: orthopnea, shortness of breath, dyspnea on exertion, no palpitations, no rapid/irregular heart beat, no edema, no syncope, no paroxysmal nocturnal dyspnea Respiratory: cough with sputum, shortness of breath, dyspnea on exertion Gastrointestinal: no abdominal pain, no nausea, no vomiting, no diarrhea Musculoskeletal: no neck stiffness, no neck pain, no shooting arm pain, no arm numbness/tingling, no low back pain Integumentary: no rash, no pruritis, no redness, no sores Neurological: no head injury, no transient paralysis, no paralysis, no weakness Psychiatric: no anxiety Endocrine: no cold intolerance, no heat intolerance Hematologic/Lymphatic: no easy bruising, no easy bleeding Physical Examination Last Vital Signs Temp 98.9 F 03/29/21 07:34 Pulse 81 03/29/21 10:39 Resp 20 03/29/21 08:47 BP 182/85 03/29/21 10:39 Pulse Ox 97 03/29/21 08:47 General appearance: no acute distress HEENT: Positive: PERRL Neck: Positive: trachea midline Cardiac: Positive: Reg Rate and Rhythm, S1/S2 Lungs: Positive: Normal Exam, clear to auscultation, Normal Breath Sounds Neuro: Positive: Grossly Intact Abdomen: Positive: Soft, Active Bowel Sounds Skin: Negative: Rash, Suspicious Lesions Extremities: Present: normal, upper extr. pulses, lower extr. pulses. Absent: edema Results 03/28/21 10:00 03/29/21 05:35 Cardiac Enzymes 03/28/21 Range/Units 10:00 AST 15 (5-40) units/L Comprehensive Metabolic Panel 03/28/21 03/29/21 Range/Units 10:00 05:35 Sodium 139 138 (137-145) mmol/L Potassium 4.0 4.3 (3.6-5.0) mmol/L Chloride 102.6 102.0 (98-107) mmol/L Carbon Dioxide 23 27 (22-30) mmol/L BUN 10 16 (7-17) mg/dL Creatinine 1.1 1.3 H (0.6-1.2) mg/dL Glucose 104 H 81 (65-100) mg/dL Calcium 9.4 8.4 (8.4-10.2) mg/dL AST 15 (5-40) units/L ALT 8 (7-56) units/L Alkaline Phosphatase 99 (35-129) units/L Total Protein 6.5 (6.3-8.2) g/dL Albumin 3.9 (3.9-5) g/dL - Imaging and Cardiology Echo: report reviewed, image reviewed EKG: report reviewed, image reviewed EKG interpretations - Telemetry EKG Rhythm: Sinus Rhythm - EKG Sinus rhythms and dysrhythmias: sinus rhythm Assessment and Plan HFpEF * Echo 03/28/2021- LVEF is 55 to 60%, mild left ventricle hypertrophy with mild diastolic dysfunction, right ventricular function is normal, mild aortic regurgitation * Patient appears to be euvolemic with no peripheral edema. Breath sounds reveal bilateral expiratory wheeze. Discontinue Lasix. HTN * Optimize hypertension regimen: continue clonidine 0.1mg PO BID, Amlodipine 5mg PO QD, Lisinopril 40mg PO Qday, labetalol 300 mg PO BID. Increase Hydralizine 100mg PO TID Acute respiratory failure secondary to COPD exacerbation * Managed by primary team * Patient still requiring supplemental oxygen DVT Prophylaxis * Heparin SQ Patient seen in conjunction with Dr. Saldana who agrees with this plan. We will continue to follow - Patient Problems (1) Acute hypoxemic respiratory failure Current Visit: Yes Status: Acute (2) Diabetes Current Visit: Yes Status: Acute (3) Hypertension Current Visit: Yes Status: Acute Qualifiers: Hypertension type: primary hypertension Qualified Code(s): I10 - Essential (primary) hypertension (4) Chronic sinusitis Current Visit: No Status: Chronic Qualifiers: Sinusitis location: unspecified location Qualified Code(s): J32.9 - Chronic sinusitis, unspecified
--- NOTE | 2021-03-29 13:50 | Progress Note ---
Assessment and Plan Patient is a 75 y/o female with a PMHx of COPD, HTN, DM, and chronic sinussitis who presented to ED with complaint of difficulty breathing for 2-3 weeks. --Acute hypoxemic respiratory failure due to COPD exacerbation, cont nebs, supplemental O2, empiric steroid --Acute COPD exacerbation - Will provide scheduled nebulizer breathing treatment and as needed - will get sputum culture, chest x-ray was unremarkable - Provide supplemental oxygen to keep oxygen saturation above 92% --Hypertension, monitor BP and continue to adjust medications as needed continue clonidine 0.1mg PO BID, Amlodipine 5mg PO QD, Lisinopril 40mg PO Qday, labetalol 300 mg PO BID. Increase Hydralizine 100 mg BID to Hydralizine 100mg PO TID --Diabetes mellitus type 2, consistent carb diet and sliding scale insulin --Chronic sinusitis, follow clinically, decongestant as needed --Right inguinal hernia, follow-up with [facility] as outpatient --Mild DOMINIK, likely due to diuresis Will stop Lasix, follow BMP --DVT prophylaxis, Lovenox Daily clinical course: 03/29/21: Patient continues to have significant wheezing. continue empiric ant ibiotic, nebulizer breathing treatment. Supplemental O2 as needed. 2D echo showed preserved EF. Patient requesting surgery consult for her right inguinal hernia. Follow clinically. Patient has underlying history of diabetes, will be cautious about steroid use. Subjective Date of service: 03/29/21 Interval history: Patient seen and examined. Medical records and medication list reviewed. No acute event overnight noted by the RN. Patient sitting in room air but complains of difficulty breathing on ambulation. She also complains of right-sided labial pain from her inguinal hernia patient is tolerating diet. Discussed plan of care at bedside with patient. Objective - Exam Narrative Exam: GENERAL: well-developed and obese elderly -[place] female lying on bed appeared to be in no discomfort. HEENT: Normocephalic. Atraumatic. No conjunctival congestion or icterus. Patient has moist mucous membranes. NECK: Supple. Trachea midline. CHEST/LUNGS: Positive wheezes auscultated bilaterally, breathing nonlabored. No crackles or rhonchi. HEART/CARDIOVASCULAR: Regular in rate and rhythm. S1 and S2 positive. ABDOMEN: Abdomen is soft, nontender. Patient has normal bowel sounds. Noticed right-sided inguinal hernia on coughing SKIN: There is no rash. Warm and dry. NEURO: No focal motor deficit. Follows command. MUSCULOSKELETAL: No joint effusion or tenderness. EXTRIMITY: No edema, no cyanosis or clubbing. PSYCH: Cooperative. - Constitutional Vitals: Vital Signs - 12hr 03/29/21 03/29/21 03/29/21 03:03 05:43 07:34 Temperature 98.9 F Pulse Rate 72 73 Pulse Rate [ Bilateral] Respiratory 18 18 18 Rate Respiratory Rate [Bilateral ] Blood Pressure 171/77 182/85 O2 Sat by Pulse 95 92 97 Oximetry 03/29/21 03/29/21 03/29/21 08:47 10:38 10:39 Temperature Pulse Rate 81 81 Pulse Rate [ 81 Bilateral] Respiratory Rate Respiratory 20 Rate [Bilateral ] Blood Pressure 182/85 182/85 O2 Sat by Pulse 97 Oximetry 03/29/21 11:36 Temperature 98.3 F Pulse Rate 70 Pulse Rate [ Bilateral] Respiratory 18 Rate Respiratory Rate [Bilateral ] Blood Pressure 121/61 O2 Sat by Pulse 96 Oximetry - Labs CBC & Chem 7: 03/28/21 10:00 03/29/21 05:35 Labs: Abnormal lab results 03/29/21 Range/Units 05:35 Creatinine 1.3 H (0.6-1.2) mg/dL HEART Score - HEART Score Troponin: Troponin T < 0.010 ng/mL (0.00-0.029) 03/28/21 10:00
[2021-03-29] MEDS: MONTELUKAST 10 MG TAB PO SCH (17:45)
[2021-03-29] MEDS: MORPHINE 4 MG/1 ML INJ IV PRN (17:54)
[2021-03-29] MEDS: HEPARIN 5,000 UNIT/1 ML VIAL SUB-Q SCH ×2 (17:57→21:06)
--- NOTE | 2021-03-29 17:59 | Consultation ---
History of Present Illness Consult date: 03/29/21 Reason for consult: hernia Chief complaint: Shortness of breath - History of present illness History of present illness: 75-year-old female who presents to the emergency room yesterday with chief complaint of shortness of breath. She has a history of COPD. Patient was complaining of inguinal hernias, and thus general surgery was consulted. Patient says she has noticed a left groin hernia for several years. The hernia is exacerbated when she coughs or strains. She says she noticed a couple weeks ago a hernia defect on the right side. Patient says that the hernias are painful when she coughs or strains. Hernias remain reducible. Patient denies any nausea or vomiting. Patient is tolerating diet. Past History Past Medical History: acute [place], arthritis, COPD, diabetes, hypertension Past Surgical History: , Other (Sinus surgery, left wrist surgery) Social history: single. denies: smoking, alcohol abuse, prescription drug abuse Family history: CAD, diabetes, hypertension Medications and Allergies Allergies Allergy/AdvReac Type Severity Reaction Status Date / Time NSAIDS (Non-Steroidal Allergy Unknown Verified 06/28/15 13:21 Anti-Inflamma Home Medications Medication Instructions Recorded Confirmed Last Taken Type Azelastine 0.1% (Nf) [Astelin (Nf)] 137 mcg NS QDAY 03/28/21 03/28/21 Unknown History Cetirizine HCl [All Day Allergy 10 mg PO QDAY 03/28/21 03/28/21 Unknown History Relief] Fluticasone/Vilanterol [Breo 1 each IH QDAY 03/28/21 03/28/21 Unknown History Ellipta 100-25 Mcg INH] Furosemide [Lasix TAB] 40 mg PO BID 03/28/21 03/28/21 Unknown History Labetalol HCl [Labetalol 300mg TAB] 300 mg PO BID 03/28/21 03/28/21 Unknown History hydrALAZINE [Apresoline TAB] 100 mg PO BID 03/28/21 03/28/21 Unknown History lisinopriL [Zestril TAB] 40 mg PO QDAY 03/28/21 03/28/21 Unknown History Active Meds: Active Medications Acetaminophen (Acetaminophen 325 Mg Tab) 650 mg PO Q4H PRN PRN Reason: Pain MILD(1-3)/Fever >100.5/PIERRE Albuterol (Albuterol 2.5 Mg/3 Ml Nebu) 2.5 mg IH Q4HRT PRN PRN Reason: Shortness Of Breath Amlodipine Besylate (Amlodipine 5 Mg Tab) 5 mg PO DAILY [facility] Last Admin: 03/29/21 10:38 Dose: 5 mg Documented by: Arformoterol Tartrate (Arformoterol 15 Mcg/2 Ml Nebu) 15 mcg IH Q12HRT [facility] Last Admin: 03/29/21 08:47 Dose: 15 mcg Documented by: Budesonide (Budesonide 0.5 Mg/2 Ml Nebu) 1 mg IH Q12HRT [facility] Last Admin: 03/29/21 08:48 Dose: 1 mg Documented by: Cetirizine HCl (Cetirizine 10 Mg Tab) 10 mg PO DAILY [facility] Last Admin: 03/29/21 10:39 Dose: 10 mg Documented by: Clonidine HCl (Clonidine 0.1 Mg Tab) 0.1 mg PO BID [facility] Last Admin: 03/29/21 10:39 Dose: 0.1 mg Documented by: Heparin Sodium (Porcine) (Heparin 5,000 Unit/1 Ml Vial) 5,000 unit SUB-Q Q12HR [facility] Hydralazine HCl (Hydralazine 100 Mg Tab) 100 mg PO TID [facility] Last Admin: 03/29/21 13:27 Dose: 100 mg Documented by: Labetalol HCl (Labetalol 100 Mg Tab) 300 mg PO BID [facility] Last Admin: 03/29/21 10:38 Dose: 300 mg Documented by: Lisinopril (Lisinopril 40 Mg Tab) 40 mg PO QDAY [facility] Last Admin: 03/29/21 10:39 Dose: 40 mg Documented by: Montelukast Sodium (Montelukast 10 Mg Tab) 10 mg PO QPM [facility] Last Admin: 03/29/21 17:45 Dose: 10 mg Documented by: Morphine Sulfate (Morphine 4 Mg/1 Ml Inj) 1 mg IV Q8H PRN PRN Reason: Pain , Severe (7-10) Last Admin: 03/28/21 21:08 Dose: 1 mg Documented by: Ondansetron HCl (Ondansetron 4 Mg/2 Ml Inj) 4 mg IV Q8H PRN PRN Reason: Nausea And Vomiting Oxycodone/Acetaminophen (Oxycodone /Acetaminophen 5-325mg Tab) 1 tab PO Q6H PRN PRN Reason: Pain, Moderate (4-6) Last Admin: 03/29/21 10:46 Dose: 1 tab Documented by: Sodium Chloride (Sodium Chloride 0.9% 10 Ml Flush Syringe) 10 ml IV BID [facility] Last Admin: 03/29/21 17:46 Dose: 10 ml Documented by: Sodium Chloride (Sodium Chloride 0.9% 10 Ml Flush Syringe) 10 ml IV PRN PRN PRN Reason: LINE FLUSH Tramadol HCl (Tramadol 50 Mg Tab) 50 mg PO Q6H PRN PRN Reason: Pain, Moderate (4-6) Last Admin: 03/29/21 13:27 Dose: 50 mg Documented by: Review of Systems All systems: negative - Cardiovascular no chest pain - Respiratory cough, shortness of breath - Gastrointestinal no abdominal pain Exam Vital Signs Pulse Resp Pulse Ox 93 H 18 100 03/28/21 09:47 03/28/21 09:47 03/28/21 09:47 - General physical appearance Positive: well developed, no distress, no pain - Respiratory Positive: other (Coughing with slight shortness of breath) - Cardiovascular Heart Sounds: Present: S1 & S2 - Extremities Extremities: no ischemia - Abdomen Abdomen: Present: soft, other (Large Pfannenstiel incision, bilateral reducible inguinal hernias left larger than right. Tenderness to palpation.). Absent: tender, distended Results - Labs 03/28/21 10:00 03/29/21 05:35 Abnormal lab results 03/29/21 Range/Units 05:35 Creatinine 1.3 H (0.6-1.2) mg/dL Diabetes panel 03/29/21 Range/Units 05:35 Sodium 138 (137-145) mmol/L Potassium 4.3 (3.6-5.0) mmol/L Chloride 102.0 (98-107) mmol/L Carbon Dioxide 27 (22-30) mmol/L BUN 16 (7-17) mg/dL Creatinine 1.3 H (0.6-1.2) mg/dL Glucose 81 (65-100) mg/dL Calcium 8.4 (8.4-10.2) mg/dL Calcium panel 03/29/21 Range/Units 05:35 Calcium 8.4 (8.4-10.2) mg/dL Pituitary panel 03/29/21 Range/Units 05:35 Sodium 138 (137-145) mmol/L Potassium 4.3 (3.6-5.0) mmol/L Chloride 102.0 (98-107) mmol/L Carbon Dioxide 27 (22-30) mmol/L BUN 16 (7-17) mg/dL Creatinine 1.3 H (0.6-1.2) mg/dL Glucose 81 (65-100) mg/dL Calcium 8.4 (8.4-10.2) mg/dL Adrenal panel 03/29/21 Range/Units 05:35 Sodium 138 (137-145) mmol/L Potassium 4.3 (3.6-5.0) mmol/L Chloride 102.0 (98-107) mmol/L Carbon Dioxide 27 (22-30) mmol/L BUN 16 (7-17) mg/dL Creatinine 1.3 H (0.6-1.2) mg/dL Glucose 81 (65-100) mg/dL Calcium 8.4 (8.4-10.2) mg/dL Assessment and Plan 75-year-old female admitted to hospital for shortness of breath COPD exacerbation. Patient has chronic nonobstructing inguinal hernias. Recommend optimization of respiratory and cardiac issues. Once discharge, patient can follow-up as an outpatient with Dr. Benjamin for elective inguinal hernia repair. Patient will need to have pulmonary and cardiology clearance. No surgical intervention indicated at this time. Will sign off.
[2021-03-30] MEDS: oxyCODONE /ACETAMINOPHEN 5-325MG TAB PO PRN (03:43)
[2021-03-30] MEDS: ARFORMOTEROL 15 MCG/2 ML NEBU IH SCH ×2 (08:58→22:28)
[2021-03-30] MEDS: BUDESONIDE 0.5 MG/2 ML NEBU IH SCH ×3 (08:58→22:28)
[2021-03-30] MEDS: CETIRIZINE 10 MG TAB PO SCH (09:33)
[2021-03-30] MEDS: HEPARIN 5,000 UNIT/1 ML VIAL SUB-Q SCH ×2 (09:55→21:45)
[2021-03-30] MEDS: hydrALAZINE 100 MG TAB PO SCH ×3 (09:57→21:44)
[2021-03-30] MEDS: methylPREDNISolone Sod Succinate 125 MG/2 ML INJ IV SCH ×3 (10:12→21:42)
[2021-03-30] MEDS: LISINOPRIL 40 MG TAB PO SCH (10:13)
--- NOTE | 2021-03-30 11:09 | Progress Note ---
Assessment and Plan HFpEF * Echo 03/28/2021- LVEF is 55 to 60%, mild left ventricle hypertrophy with mild diastolic dysfunction, right ventricular function is normal, mild aortic regurgitation * Patient appears to be euvolemic with no peripheral edema. Breath sounds reveal bilateral expiratory wheeze. HTN * Optimize hypertension regimen: continue clonidine 0.1mg PO BID, Amlodipine 5mg PO QD, Lisinopril 40mg PO Qday, labetalol 300 mg PO BID, Hydralizine 100mg PO BID Acute respiratory failure secondary to COPD exacerbation * Managed by primary team * Patient still requiring supplemental oxygen DVT Prophylaxis * Heparin SQ Patient seen in conjunction with Dr. Saldana who agrees with this plan. We will continue to follow - Patient Problems (1) Acute hypoxemic respiratory failure Current Visit: Yes Status: Acute (2) Diabetes Current Visit: Yes Status: Acute (3) Hypertension Current Visit: Yes Status: Acute Qualifiers: Hypertension type: primary hypertension Qualified Code(s): I10 - Essential (primary) hypertension (4) Chronic sinusitis Current Visit: No Status: Chronic Qualifiers: Sinusitis location: unspecified location Qualified Code(s): J32.9 - Chronic sinusitis, unspecified Subjective Date of service: 03/30/21 Principal diagnosis: COPD Exacerbation Interval history: Patient resting in bed. sinus 80s on with no events on monitor Objective Last Vital Signs Temp 97.6 F 03/30/21 08:00 Pulse 62 03/30/21 10:13 Resp 18 03/30/21 08:58 BP 122/64 03/30/21 10:13 Pulse Ox 97 03/30/21 10:00 - Physical Examination General: No Apparent Distress HEENT: Positive: PERRL Neck: Positive: trachea midline Cardiac: Positive: Reg Rate and Rhythm, S1/S2 Lungs: Positive: Normal Breath Sounds Neuro: Positive: Grossly Intact Abdomen: Positive: Soft, Active Bowel Sounds Skin: Negative: Rash, Suspicious Lesions Extremities: Present: normal, upper extr. pulses, lower extr. pulses. Absent: edema - Imaging and Cardiology EKG: report reviewed, image reviewed Echo: report reviewed, image reviewed - EKG Sinus rhythms and dysrhythmias: sinus rhythm
--- NOTE | 2021-03-30 12:10 | Electrocardiograph Report ---
[facility] Test Date: 2021-03-28 Test Time: 10:11:50 Pat Name: JACKSON WHEELER Department: Room: A460 1 Gender: F Mining Helper: NILS : 1945 Requested By: DENY DOYLE Order Number: [id number] Reading MD: Cristine Bond Measurements Intervals Greer Rate: 84 P: -20 ID: [id number] QRS: -4 QRSD: 88 T: 77 QT: 423 QTc: 503 Interpretive Statements Sinus rhythm Low voltage, precordial leads Prolonged QT interval No previous ECG available for comparison Electronically Signed On 03-30-2021 12:09:58 EDT by Cristine Bond
[2021-03-30] MEDS: INSULIN REGULAR, HUMAN 100 UNITS/1 ML SUB-Q SCH ×3 (12:25→22:55)
--- NOTE | 2021-03-30 15:21 | Progress Note ---
Assessment and Plan Patient is a 75 y/o female with a PMHx of COPD, HTN, DM, and chronic sinussitis who presented to ED with complaint of difficulty breathing for 2-3 weeks. --Acute hypoxemic respiratory failure due to COPD exacerbation, cont nebs, supplemental O2, empiric steroid --Acute COPD exacerbation - Will provide scheduled nebulizer breathing treatment and as needed - Place on empiric steroid and antibiotic -chest x-ray was unremarkable - Provide supplemental oxygen to keep oxygen saturation above 92% --Hypertension, monitor BP and continue to adjust medications as needed continue clonidine 0.1mg PO BID, Amlodipine 5mg PO QD, Lisinopril 40mg PO Qday, labetalol 300 mg PO BID. Increase Hydralizine 100 mg BID to Hydralizine 100mg PO TID --Diabetes mellitus type 2, consistent carb diet and sliding scale insulin --Chronic sinusitis, follow clinically, decongestant as needed --Right inguinal hernia, follow-up with GS as outpatient --Mild DOMINIK, likely due to diuresis Will stop Lasix, follow BMP --DVT prophylaxis, Lovenox Daily clinical course: 03/29/21: Patient continues to have significant wheezing. continue empiric antibiotic, nebulizer breathing treatment. Supplemental O2 as needed. 2D echo showed preserved EF. Patient requesting surgery consult for her right inguinal hernia. Follow clinically. Patient has underlying history of diabetes, will be cautious about steroid use. 03/30/21; continue to have wheezes, will add steroid and antibiotic. Will monitor blood glucose very carefully. Resume home dose of Metformin continue sliding scale insulin. Patient resting otherwise in room air but has difficulty breathing on minimal exertion and ambulation. Continue to follow. If clinically improves possible discharge tomorrow. Subjective Date of service: 03/30/21 Principal diagnosis: COPD Exacerbation Interval history: Patient seen and examined. Medical records and medication list reviewed. No acute event overnight noted by the RN. Patient states she had a rough night, still coughing Discussed plan of care at bedside with patient. Objective - Exam Narrative Exam: GENERAL: well-developed and obese elderly -[place] female lying on bed appeared to be in no discomfort. HEENT: Normocephalic. Atraumatic. No conjunctival congestion or icterus. Patient has moist mucous membranes. NECK: Supple. Trachea midline. CHEST/LUNGS: Positive wheezes auscultated bilaterally, breathing nonlabored. No crackles or rhonchi. HEART/CARDIOVASCULAR: Regular in rate and rhythm. S1 and S2 positive. ABDOMEN: Abdomen is soft, nontender. Patient has normal bowel sounds. Noticed right-sided inguinal hernia on coughing SKIN: There is no rash. Warm and dry. NEURO: No focal motor deficit. Follows command. MUSCULOSKELETAL: No joint effusion or tenderness. EXTRIMITY: No edema, no cyanosis or clubbing. PSYCH: Cooperative. - Constitutional Vitals: Vital Signs - 12hr 03/30/21 03/30/21 03/30/21 04:00 05:44 07:20 Temperature Pulse Rate 63 Pulse Rate [ 77 Bilateral] Respiratory Rate Respiratory 20 Rate [Bilateral ] Blood Pressure O2 Sat by Pulse 97 Oximetry 03/30/21 03/30/21 03/30/21 08:00 08:58 10:00 Temperature 97.6 F Pulse Rate 62 Pulse Rate [ 70 Bilateral] Respiratory 22 Rate Respiratory 18 Rate [Bilateral ] Blood Pressure 122/64 O2 Sat by Pulse 98 97 Oximetry 03/30/21 10:13 Temperature Pulse Rate 62 Pulse Rate [ Bilateral] Respiratory Rate Respiratory Rate [Bilateral ] Blood Pressure 122/64 O2 Sat by Pulse Oximetry - Labs CBC & Chem 7: 03/28/21 10:00 03/29/21 05:35 Labs: Abnormal lab results 03/30/21 Range/Units 11:56 POC Glucose 125 H (70-105) mg/dL HEART Score - HEART Score Troponin: Troponin T < 0.010 ng/mL (0.00-0.029) 03/28/21 10:00
[2021-03-30] MEDS: metFORMIN 500 MG TAB PO SCH (16:51)
[2021-03-30] MEDS: MONTELUKAST 10 MG TAB PO SCH (17:08)
[2021-03-30] MEDS ORDERED: ALUM-MAG HYDROXIDE-SIMETHICONE 200-200-20MG/5ML ORAL LIQD 30 ML PO PRN ×2 (19:12→22:53)
[2021-03-30] MEDS: MORPHINE 4 MG/1 ML INJ IV PRN (21:49)
[2021-03-31 05:21] LABS: Calcium 8.9 mg/dL (8.4-10.2)
[2021-03-31] MEDS: methylPREDNISolone Sod Succinate 125 MG/2 ML INJ IV SCH ×2 (05:40→13:24)
[2021-03-31] MEDS: INSULIN REGULAR, HUMAN 100 UNITS/1 ML SUB-Q SCH ×2 (07:53→13:01)
[2021-03-31] MEDS: BUDESONIDE 0.5 MG/2 ML NEBU IH SCH (08:41)
[2021-03-31] MEDS: ARFORMOTEROL 15 MCG/2 ML NEBU IH SCH (08:41)
[2021-03-31] MEDS: metFORMIN 500 MG TAB PO SCH (08:58)
[2021-03-31] MEDS: hydrALAZINE 100 MG TAB PO SCH ×3 (08:59→13:24)
[2021-03-31] MEDS: HEPARIN 5,000 UNIT/1 ML VIAL SUB-Q SCH (08:59)
[2021-03-31] MEDS: CETIRIZINE 10 MG TAB PO SCH (08:59)
[2021-03-31] MEDS: LISINOPRIL 40 MG TAB PO SCH (09:00)
--- NOTE | 2021-03-31 12:37 | Progress Note ---
Assessment and Plan HFpEF * Echo 03/28/2021- LVEF is 55 to 60%, mild left ventricle hypertrophy with mild diastolic dysfunction, right ventricular function is normal, mild aortic regurgitation * Patient appears to be euvolemic with no peripheral edema. Breath sounds are clear to auscultation. HTN * Optimize hypertension regimen: continue Lisinopril 40mg PO Qday, labetalol 300 mg PO BID. Increased Hydralizine 100mg PO TID Acute respiratory failure secondary to COPD exacerbation * Managed by primary team * Patient no longer requiring supplemental oxygen DVT Prophylaxis * Heparin SQ Patient is stable and may be discharged from a cardiac standpoint. Patient seen in conjunction with Dr. Saldana who agrees with this plan. Will see as needed - Patient Problems (1) Acute hypoxemic respiratory failure Current Visit: Yes Status: Acute (2) Diabetes Current Visit: Yes Status: Acute (3) Hypertension Current Visit: Yes Status: Acute Qualifiers: Hypertension type: primary hypertension Qualified Code(s): I10 - Essential (primary) hypertension (4) Chronic sinusitis Current Visit: No Status: Chronic Qualifiers: Sinusitis location: unspecified location Qualified Code(s): J32.9 - Chronic sinusitis, unspecified Subjective Date of service: 03/31/21 Principal diagnosis: COPD Exacerbation Interval history: Patient sitting in bed comfortably with no complaints of chest pain of SOB Sinus 70s with no events on monitor Objective Last Vital Signs Temp 98.1 F 03/31/21 07:34 Pulse 74 03/31/21 09:00 Resp 14 03/31/21 08:42 BP 187/74 03/31/21 09:00 Pulse Ox 96 03/31/21 08:42 - Physical Examination General: No Apparent Distress HEENT: Positive: PERRL Neck: Positive: trachea midline Cardiac: Positive: Reg Rate and Rhythm, S1/S2 Lungs: Positive: clear to auscultation, Normal Breath Sounds Neuro: Positive: Grossly Intact Abdomen: Positive: Soft, Active Bowel Sounds Skin: Negative: Rash, Suspicious Lesions Extremities: Present: normal, upper extr. pulses, lower extr. pulses. Absent: edema - Labs and Meds Comprehensive Metabolic Panel 03/31/21 Range/Units 04:21 Sodium 134 L (137-145) mmol/L Potassium 4.6 (3.6-5.0) mmol/L Chloride 97.5 L (98-107) mmol/L Carbon Dioxide 24 (22-30) mmol/L BUN 23 H (7-17) mg/dL Creatinine 1.3 H (0.6-1.2) mg/dL Glucose 146 H (65-100) mg/dL Calcium 8.9 (8.4-10.2) mg/dL - Imaging and Cardiology EKG: report reviewed, image reviewed Echo: report reviewed, image reviewed - Telemetry EKG Rhythm: Sinus Rhythm - EKG Sinus rhythms and dysrhythmias: sinus rhythm
[2021-03-31 13:06] VITALS: BP 143/66
--- NOTE | 2021-03-31 13:54 | Discharge Summary ---
Providers - Providers Date of Admission: 03/28/21 14:18 Date of discharge: 03/31/21 Attending physician: DENY DOYLE 03/28/21 15:11 Consult to Cardiology [CONS] Routine Consulting Provider: FREEDOM PERERA Reason For Exam: chf 03/29/21 12:46 Consult to Physician [CONS] Routine Comment: Consulting Provider: ANGELLA FLORES Physician Instructions: Reason For Exam: right inguinal hernea 03/31/21 09:41 Physical Therapy Evaluation and Treat [CONS] Routine Comment: Reason For Exam: PT to eval and treat Primary care physician: SHIPPING CLERK CRATING Hospitalization Condition: Fair Pertinent studies: CXR, 2d echo Hospital course: Patient is a 75 y/o female with a PMHx of HF, COPD, HTN, DM, and chronic sinusitis who presented to ED with complaint of difficulty breathing for 2-3 weeks but in the last 3-4 days it has become progessively worse before the admission. In the ER patient noted to have O2 sat of 88% and decreased to 83% on exertion. Patient was admitted to the hospital for acute respiratory failure and COPD exacerbation. Patient was admitted to medical floor with scheduled nebs, iv abx, iv steroids and supplemental O2 to keep O2 sat at 94%. CXR showed no infiltrates. 2D echocardiogram showed preserved EF. Patients symptom improved with medical management. Patient was then discharged home in stable condition with outpt f/u. Daily clinical course: 03/29/21: Patient continues to have significant wheezing. continue empiric antibiotic, nebulizer breathing treatment. Supplemental O2 as needed. 2D echo showed preserved EF. Patient requesting surgery consult for her right inguinal hernia. Follow clinically. Patient has underlying history of diabetes, will be cautious about steroid use. 03/30/21; continue to have wheezes, will add steroid and antibiotic. Will monitor blood glucose very carefully. Resume home dose of Metformin continue sliding scale insulin. Patient resting otherwise in room air but has difficulty breathing on minimal exertion and ambulation. Continue to follow. If clinically improves possible discharge tomorrow. 03/31/21: Patient resting on room air and clinically much improved. Denies any wheezing, slept well last night. Patient will be discharged home today with outpatient follow-up. Discharge plan and management was thoroughly discussed with the patient and she verbalized understanding. Disposition: DC-01 TO HOME OR SELFCARE Final Discharge Diagnosis (Prints w/discharge instructions): --Acute hypoxic respiratory failure due to COPD exacerbation. --Acute COPD exacerbation. --Hypertension, uncontrolled. --Diabetes mellitus type 2. --Chronic sinusitis. --Right inguinal hernia, follow-up with general surgeon as outpatient. --Mild DOMINIK, likely due to diuresis, improved with stopping Lasix. --Obesity, due to excess calorie. Weight reduction diet and exercise as tolerated as outpatient when appropriate Time spent for discharge: 34 minutes Core Measure Documentation - Palliative Care Palliative Care/ Comfort Measures: Not Applicable - Core Measures Any of the following diagnoses?: none Exam - Physical Exam Narrative exam: GENERAL: well-developed and obese elderly -Polish female lying on bed appeared to be in no discomfort. HEENT: Normocephalic. Atraumatic. No conjunctival congestion or icterus. Patient has moist mucous membranes. NECK: Supple. Trachea midline. CHEST/LUNGS: Few wheezes auscultated bilaterally, breathing nonlabored. No crackles or rhonchi. HEART/CARDIOVASCULAR: Regular in rate and rhythm. S1 and S2 positive. ABDOMEN: Abdomen is soft, nontender. Patient has normal bowel sounds. Noticed right-sided inguinal hernia on coughing SKIN: There is no rash. Warm and dry. NEURO: No focal motor deficit. Follows command. MUSCULOSKELETAL: No joint effusion or tenderness. EXTRIMITY: No edema, no cyanosis or clubbing. PSYCH: Cooperative. - Constitutional Vitals: Temp Pulse Resp BP Pulse Ox 97.3 F L 78 20 143/66 97 03/31/21 13:04 03/31/21 13:04 03/31/21 13:04 03/31/21 13:04 03/31/21 13:04 Plan Activity: advance as tolerated Weight Bearing Status: Weight Bear as Tolerated Diet: diabetic Special Instructions: record daily BP diary, record blood sugar diary Durable Medical Equipment Needed Upon Discharge: Nebulizer Follow up with: ZACH QUINTANILLA DO [Staff Physician] - 7 Days PRIMARY MD SILVIA [Primary Care Provider] - 3-5 Days PRUDENCE SAMUELS MD [Staff Physician] - 7 Days Prescriptions: Cetirizine HCl [All Day Allergy Relief] 10 mg PO QDAY #20 cap hydrALAZINE [Apresoline TAB] 100 mg PO TID #90 tab Fluticasone/Vilanterol [Breo Ellipta 100-25 Mcg INH] 1 each IH QDAY #1 Ipratropium/Albuterol Sulfate [DUONEB *Not for PRN Use*] 1 ampul IH Q4HR #30 ampul.neb Prednisone [predniSONE 10 mg (6-Day Pack, 21 Tabs)] 10 mg PO .TAPER #1 tab.ds.pk Montelukast [Singulair] 10 mg PO QPM #30 tablet Azithromycin [Zithromax] 250 mg PO DAILY #5 tablet
[2021-04-01] MEDS ORDERED: levoFLOXacin 750 MG TAB PO SCH (10:00)
== END 2021-03-31 16:29 | disposition home or self-care (01) | DRG 189 ==
LOC: ED 09:40 → 4A 14:18
PROVIDERS: ADMIT Internal Medicine; ATTEND Internal Medicine
PROC: 4A033R1 Measurement of Arterial Saturation, Peripheral, Percutaneous Approach (ICD-10-PCS; principal; 2021-03-28)
PROC: 5A09357 Assistance with Respiratory Ventilation, Less than 24 Consecutive Hours, Continuous Positive Airway Pressure (ICD-10-PCS; 2021-03-28)
DX: J96.01 Acute respiratory failure with hypoxia (principal); I50.33 Acute on chronic diastolic (congestive) heart failure; E66.2 Morbid (severe) obesity with alveolar hypoventilation; N17.9 Acute kidney failure, unspecified; J44.1 Chronic obstructive pulmonary disease with (acute) exacerbation; I11.0 Hypertensive heart disease with heart failure; E11.9 Type 2 diabetes mellitus without complications; Z68.34 Body mass index [BMI] 34.0-34.9, adult; R35.8 Other polyuria; K40.90 Unilateral inguinal hernia, without obstruction or gangrene, not specified as recurrent; Z88.8 Allergy status to other drugs, medicaments and biological substances; Z79.899 Other long term (current) drug therapy; M19.90 Unspecified osteoarthritis, unspecified site; Z83.3 Family history of diabetes mellitus; Z82.49 Family history of ischemic heart disease and other diseases of the circulatory system; J32.9 Chronic sinusitis, unspecified
CPT/HCPCS: 36415; 71045; 80048; 80053; 81001; 82140; 82803; 82962; 83735; 83880; 84439; 84443; 84484; 85007; 85025; 85610; 85730; 87040; 93005; 93306; 94640; 94644; G0378; J1644; J1815; J1940; J1956; J2270; J2930